=== PATIENT | female | born 2000 | race Caucasian/White ===

== ENCOUNTER 2020-08-19 20:05 | Outpatient (CLI) | payer OTHER ==
[~2020-08-19 20:05] MED LIST: OMNICEF 300 MG300 MG PO
[2020-08-19] MEDS ORDERED: AMOXICILLIN500 MG PO (21:56)
[2020-08-19] MEDS ORDERED: CORTISPORIN OTI10 M1 EARLF (21:56)
== END 2020-08-19 21:11 | disposition home or self-care (01) ==
LOC: GENOP 20:05
DX: O36.8130 Decreased fetal movements, third trimester, not applicable or unspecified (principal); O99.891 Other specified diseases and conditions complicating pregnancy; H92.02 Otalgia, left ear; Z3A.32 32 weeks gestation of pregnancy
CPT/HCPCS: G0463

== ENCOUNTER 2020-08-19 21:15 | Emergency (ER) | payer OTHER ==
[2020-08-19] MEDS ORDERED: AMOXICILLIN500 MG PO (21:56)
[2020-08-19] MEDS ORDERED: CORTISPORIN OTI10 M1 EARLF (21:56)
== END 2020-08-19 22:05 | disposition home or self-care (01) ==
LOC: ER1 21:15
DX: O99.891 Other specified diseases and conditions complicating pregnancy (principal); H60.92 Unspecified otitis externa, left ear; Z3A.32 32 weeks gestation of pregnancy
CPT/HCPCS: 99282; G0463